=== PATIENT | female | born 2000 | race Caucasian/White ===

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

== ENCOUNTER 2020-08-22 08:50 | Emergency (ER) | payer OTHER ==
[~2020-08-22] VITALS: Ht 165.1 cm; Wt 86.2 kg
[2020-08-22 08:57] VITALS: BP 143/90; Ht 165.1 cm; Wt 86.2 kg
== END 2020-08-22 10:55 | disposition home or self-care (01) ==
LOC: ED 08:50
DX: L02.11 Cutaneous abscess of neck (principal); L72.3 Sebaceous cyst